=== PATIENT | female | born 1985 | race African-American/Black ===

== ENCOUNTER 2018-11-11 10:57 | Emergency (ER) | payer MEDICAID, OTHER ==
[~2018-11-11] VITALS: Ht 152.4 cm; Wt 89.0 kg
[~2018-11-11 10:57] MED LIST: MAGN400C PO; PREN-88 PO
[2018-11-11 12:27] LABS: BASOPHILS % 0.8 % (0.0-2.0); EOSINOPHILS % 2.8 % (0.0-5.0); HEMOGLOBIN. 13.3 g/dL (12.0-16.0); LYMPHOCYTES % 29.2 % (20.0-50.0); MEAN CORPUSCULAR HEMOGLOBIN 31.8 pg (28.0-32.0); MEAN CORPUSCULAR VOLUME 91.3 fL (81.0-99.0); MEAN PLATELET VOLUME 8.1 fl (7.4-10.4); MONOCYTES % 9.7 % (2.0-8.0); NEUTROPHILS % 57.5 % (40.0-76.0); PLATELET 263 x1000/uL (130-400); RED BLOOD CELL COUNT 4.17 mill/uL (4.2-5.4); RED CELL DISTRIBUTION WIDTH 12.8 % (11.6-14.6)
[2018-11-11 12:32] LABS: CHLORIDE 104 mEq/L (98-107)
[2018-11-11 14:24] VITALS: BP 108/72
== END 2018-11-11 14:26 | disposition home or self-care (01) ==
LOC: ER 10:57
DX: R20.0 Anesthesia of skin (principal); R06.02 Shortness of breath; J45.909 Unspecified asthma, uncomplicated; Z98.890 Other specified postprocedural states
CPT/HCPCS: 36415; 71045; 81025; 93005; 99284

== ENCOUNTER 2024-10-18 12:55 | Emergency (ER) | payer MEDICAID ==
[~2024-10-18] VITALS: Ht 152.4 cm; Wt 84.0 kg
[~2024-10-18 12:55] MED LIST changes: +CIPR-263 MT; +IBUP-2030 MT; -PREN-88 PO
[2024-10-18 13:02] VITALS: TEMP 36.9; O2SAT 98
[2024-10-18 14:39] LABS: BASOPHILS % 0.7 % (0.0-2.0); EOSINOPHILS % 3.0 % (0.0-5.0); HEMATOCRIT. 36.6 % (36.0-48.0); HEMOGLOBIN. 12.5 g/dL (12.0-16.0); LYMPHOCYTES % 32.1 % (20.0-50.0); MEAN PLATELET VOLUME 7.7 fl (7.4-10.4); MONOCYTES % 9.9 % (2.0-8.0); NEUTROPHILS % 54.3 % (40.0-76.0); PLATELET 329 x1000/uL (130-400); RED BLOOD CELL COUNT 4.06 mill/uL (4.2-5.4); RED CELL DISTRIBUTION WIDTH 13.1 % (11.6-14.6)
[2024-10-18 14:44] LABS: CLARITY URINE CLEAR (CLEAR); COLOR URINE YELLOW (YELLOW); GLUCOSE URINE NEGATIVE (NEGATIVE); KETONES URINE TRACE (NEGATIVE); LEUKOCYTE ESTERASE URINE 2+ (NEGATIVE); NITRITE URINE POSITIVE (NEGATIVE); OCCULT BLOOD URINE 1+ (NEGATIVE); PH URINE 6.0 (4.5-8.0); PROTEIN URINE 2+ (NEGATIVE); SPECIFIC GRAVITY URINE 1.021 (1.005-1.030); UROBILINOGEN URINE 0.2 E.U./dL (0.2-1.0)
[2024-10-18 14:45] LABS: INR 1.0
[2024-10-18 14:52] LABS: HCG SCREEN NEGATIVE
[2024-10-18 14:57] LABS: BACTERIA URINE 3+; RBC URINE 0-2 /hpf (0-2); SQUAMOUS EPITHELIAL CELL URINE 2+ /lpf (RARE/1+); WBC URINE 15-25 /hpf (0-2); YEAST URINE NONE SEEN
[2024-10-18 14:58] LABS: CREATININE 1.0 mg/dL (0.6-1.0); TROPONIN I HIGH SENSITIVITY < 4 ng/L (3.0-34); UREA NITROGEN BLOOD 11 mg/dL (9-23)
[2024-10-18] MEDS ORDERED: NITR-87 MT (16:14)
[2024-10-18] MEDS: CEFTRIAXONE SODIUM 1G VIAL IM SCH (16:23)
[2024-10-18 16:37] VITALS: BP 140/103; PULSE 74; RESP 12; O2SAT 100
== END 2024-10-18 18:40 | disposition home or self-care (01) ==
LOC: ER 12:55
DX: R07.89 Other chest pain (principal); J45.909 Unspecified asthma, uncomplicated; Z79.899 Other long term (current) drug therapy; Z98.890 Other specified postprocedural states
CPT/HCPCS: 80048; 81003; 84703; 85025; 85610; 87086; 87186; 84484; 87077; 36415; 71045; 93005; 96372; 99285; J0696; Z7610